=== PATIENT | female | born 1970 | race African-American/Black ===

== ENCOUNTER 2020-08-01 15:29 | Emergency (ER) | payer OTHER ==
[2020-08-01 16:03] VITALS: BP 121/84; PULSE 85; TEMP 98.1; BMI 38.9
[2020-08-01 18:43] LABS: ARTERIAL BLD GAS O2 SATURATION 97.3 mmHg (95-98); ARTERIAL BLOOD GAS BASE EXCESS 1.3 mmol/L (-2-2); ARTERIAL BLOOD GAS PO2 91.2 mmHg (80-100); ARTERIAL BLOOD GAS pH 7.447 (7.350-7.450)
[2020-08-01 18:44] LABS: ALLENS TEST POSITIVE
== END 2020-08-01 19:20 | disposition home or self-care (01) ==
LOC: JER 15:29
DX: R07.89 Other chest pain (principal)
CPT/HCPCS: 36600; 71046-TC-FY; 82375; 82803; 93005; 93010; 99284-25

== ENCOUNTER 2020-10-24 04:24 | Day surgery (SDC) | payer OTHER ==
[2020-10-22 14:29] VITALS: BMI 39.1
[2020-10-24 09:04] VITALS: PULSE 82
[2020-10-24 09:46] VITALS: BP 118/77; TEMP 98
== END 2020-10-24 09:49 | disposition home or self-care (01) ==
LOC: JASU-ENDO 04:24
PROVIDERS: ATTEND Internal Medicine Gastroenterology
PROC: 0DJD8ZZ Inspection of Lower Intestinal Tract, Via Natural or Artificial Opening Endoscopic (ICD-10-PCS; principal; 2020-10-24 09:15)
PROC: 0DB78ZX Excision of Stomach, Pylorus, Via Natural or Artificial Opening Endoscopic, Diagnostic (ICD-10-PCS; 2020-10-24 09:15)
DX: Z12.11 Encounter for screening for malignant neoplasm of colon (principal); K57.30 Diverticulosis of large intestine without perforation or abscess without bleeding; K44.9 Diaphragmatic hernia without obstruction or gangrene; K31.89 Other diseases of stomach and duodenum; D50.9 Iron deficiency anemia, unspecified
CPT/HCPCS: 43239; G0121; 81025; 88305-TC; 88342-TC

== ENCOUNTER 2020-11-06 04:36 | Day surgery (SDC) | payer OTHER ==
[2020-11-06] MEDS ORDERED: FERRIC CARBOXYMALTOSE 750 MG in SODIUM CHLORIDE 250 ML IVPB ONE (09:30)
[2020-11-06 11:16] VITALS: BP 116/76; PULSE 71; TEMP 97.9
== END 2020-11-06 11:20 | disposition home or self-care (01) ==
LOC: JINFUSION 04:36
PROVIDERS: ATTEND Internal Medicine Gastroenterology
PROC: 3E033GC Introduction of Other Therapeutic Substance into Peripheral Vein, Percutaneous Approach (ICD-10-PCS; principal; 2020-11-06)
DX: D50.9 Iron deficiency anemia, unspecified (principal)
CPT/HCPCS: 81025; 96365; J1439

== ENCOUNTER 2020-11-13 04:54 | Day surgery (SDC) | payer OTHER ==
[2020-11-13] MEDS ORDERED: FERRIC CARBOXYMALTOSE 750 MG in SODIUM CHLORIDE 250 ML IVPB ONE (10:00)
[2020-11-13 10:25] VITALS: PULSE 68
[2020-11-13 11:08] VITALS: BP 112/50; TEMP 97.7
== END 2020-11-13 11:10 | disposition home or self-care (01) ==
LOC: JINFUSION 04:54
PROVIDERS: ATTEND Internal Medicine Gastroenterology
PROC: 3E033GC Introduction of Other Therapeutic Substance into Peripheral Vein, Percutaneous Approach (ICD-10-PCS; principal; 2020-11-13)
DX: D50.9 Iron deficiency anemia, unspecified (principal)
CPT/HCPCS: 81025; 96365; J1439